=== PATIENT | female | born 1970 | race Caucasian/White ===

== ENCOUNTER 2016-03-15 10:34 | Inpatient (IN) | payer OTHER ==
[2016-03-15] MEDS ORDERED: HYDROmorphone 1 MG/ML 1 ML SYRINGE IVP STA (10:58)
--- NOTE | 2016-03-15 11:28 | ED ---
Back Pain HPI - General Chief Complaint: Back Pain/Injury Stated Complaint: back pain Source: patient Limitations: no limitations - History of Present Illness Initial Comments: This 45-year-old white female presents with the complaint of low back pain. She states that it is primarily in her right buttock region and radiates down her right leg. The pain is worse into her calf. She has numbness going down her right leg as well. She has had her symptoms are probably 6 weeks but they were much worse over the past day. She states that she is unable to put any weight on her right leg at this point. She is unable to ambulate. She has thus far tried some steroids, Neurontin, Motrin 600 mg, and [place] without any relief. She denies any fever or chills. She denies any bowel or bladder abnormalities. She has had some intermittent back pain issues for years. She is scheduled for an MRI scan of her lower back on the 16th of this month. No other complaints or modifying factors. - Related Data Home Medications Medication Instructions Recorded Confirmed Gabapentin [Neurontin] 100 mg PO BID 03/15/16 03/15/16 Ibuprofen [Motrin] 600 mg PO Q6HR PRN 03/15/16 03/15/16 PARoxetine HCL [Paxil] 20 mg PO HS 03/15/16 03/15/16 Allergies Allergy/AdvReac Type Severity Reaction Status Date / Time tetanus and diphtheria Allergy Unknown Verified 03/15/16 11:02 toxoids Childhood Sulfa (Sulfonamide AdvReac Rapid Verified 03/15/16 11:02 Antibiotics) Heart Rate Review of Systems ROS Statement: Those systems with pertinent positive or pertinent negative responses have been documented in the HPI. ROS Other: All systems not noted in ROS Statement are negative. Past Medical History Additional Past Medical History / Comment(s): back pain History of Any Multi-Drug Resistant Organisms: None Reported Past Surgical History: Tubal Ligation, Uterine Ablation Past Psychological History: Depression Smoking Status: Never smoker Past Alcohol Use History: None Reported Past Drug Use History: None Reported General Exam - General Exam Comments Initial Comments: GENERAL: The patient is well nourished and well hydrated. VITAL SIGNS: Heart rate, blood pressure, respiratory rate reviewed as recorded in nurse's notes. EYES: Pupils are round and reactive. Extraocular movements are intact. No conjunctival / lid redness or swelling. ENT: No external evidence of injury, swelling, or ecchymosis. Airway is patent. Throat is clear. NECK: Nontender. No swelling or evidence of injury. No subcutaneous emphysema. Trachea is midline. No thyroid mass. HEART: Regular rate and rhythm. Good peripheral pulses. LUNGS/CHEST: Breath sounds clear and equal bilaterally. No rales, rhonchi, or wheezes. No ecchymosis, subcutaneous emphysema, or tenderness. ABDOMEN: Abdomen soft without tenderness. No palpable masses or organomegaly. No peritoneal signs. No abdominal wall swelling or ecchymosis. EXTREMITIES: There is tenderness noted to the right buttock and slightly in the right leg. There is minimal tenderness in the right lower back. This is in the paraspinal musculature. Strength is intact to lower extremities. Pedal pulses are present bilaterally. NEUROLOGIC: Sensation is grossly intact. Cranial nerve exam reveals face is symmetrical, tongue is midline, speech is clear. SKIN: No abrasions or ecchymosis is noted. No induration or masses noted. PSYCHIATRIC: Alert and oriented. Appropriate behavior and judgment. Limitations: no limitations Course Vital Signs 03/15/16 03/15/16 03/15/16 10:37 12:50 15:31 Temperature 98.6 F 98.3 F 98.9 F Pulse Rate 70 61 72 Respiratory 18 16 16 Rate Blood Pressure 115/74 129/78 120/74 O2 Sat by Pulse 95 100 97 Oximetry Medical Decision Making - Medical Decision Making The patient was seen and examined. She received Dilaudid 1 mg IM. She feels improved with the pain medication. She is still unable to ambulate. An MRI scan was done of the lumbar spine and this does show a herniated disc on the right side at L5-S1. It is felt as though her symptoms are fairly severe to the point where she cannot ambulate. Is felt as though she benefit from admission to the hospital for further treatment. Case is discussed with internal medicine and they are agreeable to admission. She will be admitted to the medical/surgical floor with spinal surgery to consult. Disposition Clinical Impression: Intractable low back pain, Herniated lumbar intervertebral disc, Unable to walk Disposition: ADMITTED IP TO THIS [facility] Condition: Fair Time of Disposition: 16:04 Decision Date: 03/15/16 Decision Time: 16:04
--- NOTE | 2016-03-15 15:00 | MR ---
EXAMINATION TYPE: MR lumbar spine wo con DATE OF EXAM: 03/15/2016 2:39 PM COMPARISON: Plain film February HISTORY: Right low back pain with radiculopathy TECHNIQUE: Multiplanar, multisequence images of the lumbar spine were acquired. There is loss of disc signal, some loss of disc height L4-5, L5-S1, there is multilevel spondylosis. Endplate discogenic marrow signal changes greatest at L5-S1. Increased signal within the L2 vertebral bodies likely due to hemangioma which is larger than one in the L1 vertebral body. Lumbar vertebral bodies show preserved height and alignment. Minimal retrolisthesis grade 1 L5-S1. The conus is at L1 shows an unremarkable appearance. L1-L2: Normal disc appearance without desiccation. No herniation, protrusion or disc bulging. No ca nal stenosis is present. Foramina are patent bilaterally. L2-L3: Normal disc appearance without desiccation. No herniation, protrusion or disc bulging. No ca nal stenosis is present. Foramina are patent bilaterally. L3-L4: Normal disc appearance without desiccation. No herniation, protrusion or disc bulging. No ca nal stenosis is present. Foramina are patent bilaterally. L4-L5: Broad-based posterior disc bulge causes minimal anterior mass effect on the thecal sac. L5-S1: There is a right posterior and paracentral disc herniation contacting the proximal S1 nerve ro ots right greater than left, causing some mass effect on the distal thecal sac. Circumferential exten madeline of endplate disc complex encroaches mildly on the neural foramina. Lumbar segments are intact. No paraspinal masses are identified. IMPRESSION: Disc herniation L5-S1, correlate for S1 radiculopathy.
[2016-03-15] MEDS ORDERED: KETOROLAC 30 MG/ML 1 ML VIAL IVP STA (16:05)
[2016-03-15] MEDS ORDERED: methylPREDNISolone SOD SUCCI 125 MG/2 ML VIAL IV STA (16:05)
[2016-03-15] MEDS ORDERED: ONDANSETRON 4 MG/2 ML VIAL IVP PRN (16:07)
[2016-03-15] MEDS ORDERED: NALOXONE 0.4 MG/ML 1 ML VIAL IV PRN (16:07)
[2016-03-15 17:01] LABS: Basophils % (A) 0 %; CH 31.7; CHCM 34.2; Eosinophils # (A) 0.2 k/uL (0-0.7); Eosinophils % (A) 3 %; HCT 40.9 % (34.0-46.0); HDW 2.61; HGB 13.6 gm/dL (11.4-16.0); Luc % (Auto) 2; Lymphocytes % (A) 33 %; MCH 30.9 pg (25.0-35.0); MCHC 33.3 g/dL (31.0-37.0); MCV 92.9 fL (80.0-100.0); Mean Platelet Volume 8.5; Monocytes # (A) 0.4 k/uL (0-1.0); Monocytes % (A) 6 %; Neutrophils # (A) 3.3 k/uL (1.3-7.7); Neutrophils % (A) 55 %; RBC 4.41 m/uL (3.80-5.40); RDW 12.9 % (11.5-15.5); WBC 5.9 k/uL (3.8-10.6); WBC (Perox) 6.27
[2016-03-15 17:09] LABS: Partial Thromboplastin Time 22.6 sec (22.0-30.0); Prothrombin Time 10.5 sec (9.0-12.0)
[2016-03-15 17:16] LABS: Anion Gap 10 mmol/L; Blood Urea Nitrogen 16 mg/dL (7-17); Calcium 9.3 mg/dL (8.4-10.2); Carbon Dioxide 25 mmol/L (22-30); Chloride 107 mmol/L (98-107); Glucose 92 mg/dL (74-99); Non-African American GFR(MDRD) >60 (>60 ml/min/1.73 sqM); Potassium 4.3 mmol/L (3.5-5.1); Sodium 142 mmol/L (137-145)
[2016-03-15] MEDS ORDERED: methylPREDNISolone SOD SUCCI 125 MG/2 ML VIAL IV SCH (18:00)
[2016-03-15] MEDS: HYDROmorphone 1 MG/ML 1 ML SYRINGE IV PRN ×2 (18:11→23:35)
--- NOTE | 2016-03-15 18:50 | HP ---
DATE OF ADMISSION: 03/15/2016 The patient is a 45 -year-old female came in with low back pain, sharp 10/, increases, has been going up ( ) and uncontrollable pain, radiating to the right buttock area. Patient is having tingling, numbness in the right leg, weakness in the leg is unknown. Unsure whether patient actually has picked up the leg and patient underwent an MRI which is showing L4, L5 disc herniation. The reading is not ( ) actually mentioned about involvement of any nerve involvement, although the patient does have radicular pain. The patient denied any ( ). The patient denied any fever, chills, nausea, vomiting, and abdominal pain. Patient's pain is ( ). The patient is definitely morbidly obese. Patient reflexes are definitely within normal limits. REVIEW OF SYSTEMS: CONSTITUTIONAL: No fever, no malaise, no fatigue. HEENT: No recent visual problems or hearing problems. Denied any sore throat. CARDIOVASCULAR: No chest pain, orthopnea, PND, no palpitations, no syncope. PULMONARY: No shortness of breath, no cough, no hemoptysis. GASTROINTESTINAL: No diarrhea, no nausea, no vomiting, no abdominal pain. Normoactive bowel sounds. NEUROLOGICAL: No headaches, no weakness, no numbness. HEMATOLOGICAL: Denies any bleeding or petechiae. GENITOURINARY: Denies any burning micturition, frequency, or urgency. MUSCULOSKELETAL/RHEUMATOLOGICAL: As described in history of present illness. ENDOCRINE: Denies any polyuria or polydipsia. The rest of the 14 point review of systems is negative. Home medications include: 1. Gabapentin. 2. Ibuprofen. 3. Paroxetine. ALLERGIES: TETANUS TOXOID, SULFA DRUGS AND ANTIBIOTICS. PAST MEDICAL HISTORY: Significant for chronic back pain, tubal ligation, ( ) depression. SOCIAL HISTORY: Denied any smoking or ( ). FAMILY HISTORY: Denied any family history of hypertension or diabetes mellitus in the family. PHYSICAL EXAMINATION: Temperature 98.6, pulse of 70, respiratory rate of 16, blood pressure is 115/74, saturating at 95% on ( ). GENERAL: The patient is alert and oriented x3, not in any acute distress. Well developed, well nourished. HEENT: Pupils are round and equally reacting to light. EOMI. No scleral icterus. No conjunctival pallor. Normocephalic, atraumatic. No pharyngeal erythema. No thyromegaly. CARDIOVASCULAR: S1 and S2 present. No murmurs, rubs, or gallops. PULMONARY: Chest is clear to auscultation, no wheezing or crackles. ABDOMEN: Soft, nontender, nondistended, normoactive bowel sounds. No palpable organomegaly. MUSCULOSKELETAL: Patient straight leg raising test is positive in about 20 degrees on the left side. Does not have any tenderness or paraspinal ( ) was appreciated. ( ). No joint swelling or deformity. EXTREMITIES: No cyanosis, clubbing, or pedal edema. NEUROLOGICAL: Gross neurological examination did not reveal any focal deficits. SKIN: No rashes. Imaging as mentioned above. I do not have any lab tests available. IMPRESSION: 1. Severe uncontrollable low back pain. The patient is admitted for pain management. Patient is on Ketorolac, Dilaudid and Solu-Medrol. Secondary to disc herniation. Spinal surgeon Dr. Case was consulted. 2. Neuropathy and radiating radicular pain radiating into the left buttock area secondary to disc herniation continue with Gabapentin. 3. Morbid obesity, counselling was provided. 4. Depression for which I will go ahead and continue her home medications. MTDD
[2016-03-15] MEDS: GABAPENTIN 100 MG CAP PO SCH (20:30)
[2016-03-15] MEDS: PARoxetine 20 MG TAB PO SCH (20:30)
[2016-03-15 20:48] LABS: Glucose,Whole Blood 114 mg/dL (75-99)
[2016-03-15] MEDS: KETOROLAC 30 MG/ML 1 ML VIAL IVP PRN (21:54)
[2016-03-15] MEDS: methylPREDNISolone SOD SUCCI 40 MG/ML 1 ML VIAL IV SCH (23:35)
[2016-03-16 07:01] LABS: Glucose,Whole Blood 126 mg/dL (75-99)
[2016-03-16 07:30] LABS: CH 31.6; CHCM 33.8; HCT 41.1 % (34.0-46.0); HDW 2.64; HGB 13.6 gm/dL (11.4-16.0); MCH 31.1 pg (25.0-35.0); MCHC 33.1 g/dL (31.0-37.0); MCV 93.8 fL (80.0-100.0); Mean Platelet Volume 9.7; RBC 4.38 m/uL (3.80-5.40); RDW 12.7 % (11.5-15.5); WBC 8.4 k/uL (3.8-10.6)
[2016-03-16 07:49] LABS: ALT 27 U/L (9-52); AST 17 U/L (14-36); Alkaline Phosphatase 70 U/L (38-126); Anion Gap 11 mmol/L; Blood Urea Nitrogen 21 mg/dL (7-17); Calcium 9.8 mg/dL (8.4-10.2); Carbon Dioxide 25 mmol/L (22-30); Chloride 105 mmol/L (98-107); Glucose 134 mg/dL (74-99); Non-African American GFR(MDRD) >60 (>60 ml/min/1.73 sqM); Potassium 4.6 mmol/L (3.5-5.1); Sodium 141 mmol/L (137-145); Total Bilirubin 0.4 mg/dL (0.2-1.3); Total Protein 7.1 g/dL (6.3-8.2)
[2016-03-16] MEDS: ENOXAPARIN 40 MG/0.4 ML SYRINGE SQ SCH (08:16)
[2016-03-16] MEDS: methylPREDNISolone SOD SUCCI 40 MG/ML 1 ML VIAL IV SCH ×2 (08:16→17:17)
[2016-03-16] MEDS: GABAPENTIN 100 MG CAP PO SCH ×2 (08:16→21:39)
[2016-03-16] MEDS: HYDROmorphone 1 MG/ML 1 ML SYRINGE IV PRN ×2 (08:31→17:29)
[2016-03-16] MEDS ORDERED: PANTOPRAZOLE 40 MG/10 ML VIAL IV SCH (09:00)
--- NOTE | 2016-03-16 10:01 | P.CNOR ---
History of Present Illness - [facility] Consult date: 03/16/16 Consult reason: low back pain, other (Right lower extremity radiculopathy and pain) History of present illness: Patient's a pleasant 45-year-old female who has been having severe low back and right lower extremity symptoms over the past 6 weeks. She says she has back pain on and off for the past several years but over the past 6 weeks has been having worsening of her symptoms and pain down toward her right leg. She started initially going to her chiropractor and had some slight relief but was having continued symptoms and presented to her primary care physician who started her on a short course of oral steroids around Christmastime. She did not have any significant benefit and was actually having some worsening of her symptoms and over the past few days it had severe worsening of her symptoms at her right buttock down the back of her leg and right calf to the point where she was unable to walk. She has had to crawl around her house to try to get to the bathroom and could not get up and eventually called EMS was brought to the hospital where she was admitted for observation. She was found to have an herniated disc at L5-S1 which correlated well with her symptoms. She denies any specific weakness. She denies any problems in her left lower extremity. She denies any nausea vomiting or night sweats. She did have some workup for her right leg to rule out venous thrombosis which was negative per ultrasound. Review of Systems Denies fevers chills night sweats. Denies chest pain shortness breath. Denies recent illness. Denies problems in bowel bladder function denies any weakness in lower extremities. Denies any specific injury or trauma. Past Medical History Past Medical History: Musculoskeletal Disorder (History of low back pain) Additional Past Medical History / Comment(s): back pain-(HERNIATED DISC LUMBAR DISC PER MRI-16) History of Any Multi-Drug Resistant Organisms: None Reported Past Surgical History: Tubal Ligation, Uterine Ablation Additional Past Surgical History / Comment(s): WISDOM TEETH REMOVED Past Anesthesia/Blood Transfusion Reactions: Motion Sickness Additional Past Anesthesia/Blood Transfusion Reaction / Comm: MOTION SICKNESS IF RIDING IN BACK SEAT OF CAR Past Psychological History: Depression Additional Psychological History / Comment(s): PT HAS HX OF DEPRESSION, CURRNETLY FEELS WELL MAINTAINE DBY HER MEDS.PT LIVES AT HOME WITH SPOUSE AND 3 OF HER 4 CHILDREN, NORMALLY IS INDEPENDANT. HAS BEEN HAVING BACK PAIN AND THIS AM UNABLE TO AMBULATE/PAIN >10 WHEN UP. AT REST C/O PAIN 6. Smoking Status: Never smoker Past Alcohol Use History: None Reported Past Drug Use History: None Reported - Past Family History Father Additional Family Medical History / Comment(s): PARKINSONS Mother Additional Family Medical History / Comment(s): MOM IS A SMOKER-UNSURE OF ANY MED PROBLEMS Medications and Allergies Home Medications Medication Instructions Recorded Confirmed Type Gabapentin [Neurontin] 100 mg PO BID 03/15/16 03/15/16 History Ibuprofen [Motrin] 600 mg PO Q6HR PRN 03/15/16 03/15/16 History PARoxetine HCL [Paxil] 20 mg PO HS 03/15/16 03/15/16 History Allergies Allergy/AdvReac Type Severity Reaction Status Date / Time tetanus and diphtheria Allergy Unknown Verified 03/15/16 11:02 toxoids Childhood Sulfa (Sulfonamide AdvReac Rapid Verified 03/15/16 11:02 Antibiotics) Heart Rate Physical Examination Osteopathic Statement: *. No significant issues noted on an osteopathic structural exam other than those noted in the History and Physical/Consult. - L Spine: dermatomal strength & reflexes right Strength: hip flexion: 5/5 (At her low back is clear. There is no erythema or ulcerations or abrasions. She is nontender to palpation but does have some paravertebral spasm. Her lower extremities have sustained dorsal flexion plantar flexion and extensor hallucis longus with 5 out of 5 strength. She is positively straight leg raise and positive Lasegue's sign. Capillary refill less 2 seconds vascular appears to be intact) Results - Labs Labs: Abnormal Lab Results - Last 24 Hours (Table) 03/15/16 03/16/16 03/16/16 Range/Units 20:35 06:52 07:08 BUN 21 H (7-17) mg/dL Glucose 134 H (74-99) mg/dL POC Glucose (mg/dL) 114 H 126 H (75-99) mg/dL H & H 03/15/16 03/16/16 Range/Units 16:45 07:08 Hgb 13.6 13.6 (11.4-16.0) gm/dL Hct 40.9 41.1 (34.0-46.0) % Coagulation 03/15/16 Range/Units 16:45 INR 1.0 (<1.1) Result Diagrams: 03/16/16 07:08 03/16/16 07:08 - Diagnostic results Lumbar AP/lateral x-ray: report reviewed, image reviewed Lumbar MRI with/without contrast: report reviewed, image reviewed (X-rays and MRI of lumbar spine done in the past 2 days have been reviewed. She has some disc degeneration L5-S1. There is a right paracentral disc herniation at L5-S1 causing significant stenosis at the right neural foramen. There is no evidence of masses or pathologic process.) Assessment and Plan Plan: Herniated nucleus pulposis L5-S1 Right lower extremity radiculopathy The patient has a new disc herniation at L5-S1 causing her right lower extremity radicular symptoms. She is not having any specific weakness or neurologic deficit but is having severe pain where she is unable to cannulate or mobilize. She has been started on IV steroids and is on pain medicine which I think is appropriate. We have consult interventional pain management for the possibility of epidural steroid injections which may give her significant benefit and allow her to be functional at home. If she is comfortable be at home it is okay to continue workup and management as an outpatient. If she is unable to manage without IV medications she may need to stay in the hospital a little longer. She is not having acute weakness and I would like to pursue continued conservative treatment for now but she is a good candidate for surgical intervention for laminectomy and discectomy at L5-S1 if her symptoms persist. I discussed this with her and her mother at length at bedside. I answered their questions best my ability and plan she can understand and they are agreeable. Time with Patient: Greater than 30
--- NOTE | 2016-03-16 11:00 | PN ---
Patient is a 45-year-old admitted with herniated disc and patient's pain is better controlled with IV pain medications and patient was evaluated by Dr. Case. Patient does not have any weakness but does have radicular symptoms. As per Dr. Case, patient is not a candidate for surgery and pain management was consulted for a steroid injection into the lower back. REVIEW OF SYSTEMS: CARDIOVASCULAR: No chest pain, no orthopnea, no PND, no palpitations. PULMONARY: Denied any shortness of breath. No cough or hemoptysis. GASTROINTESTINAL: No diarrhea, nausea or vomiting. No abdominal pain. Normoactive bowel sounds. NEUROLOGIC: No headaches, no weakness, no numbness. MUSCULOSKELETAL: Significantly improved pain symptoms with IV pain medications. Medications were reviewed. PHYSICAL EXAMINATION: Temperature 98.2, pulse of 78, respiratory rate of 18, blood pressure 123/63, saturating at 94% on room air. GENERAL: Morbidly obese, alert and oriented x3. MUSCULOSKELETAL: Defer to Orthopedic Surgery evaluation. HEENT: Pupils are round and equally reacting to light. EOMI. No scleral icterus. No conjunctival pallor. Normocephalic, atraumatic. No pharyngeal erythema. No thyromegaly. CARDIOVASCULAR: S1 and S2 present. No murmurs, rubs, or gallops. PULMONARY: Chest is clear to auscultation, no wheezing or crackles. ABDOMEN: Soft, nontender, nondistended, normoactive bowel sounds. No palpable organomegaly. EXTREMITIES: No cyanosis, clubbing, or pedal edema. NEUROLOGICAL: Gross neurological examination did not reveal any focal deficits. SKIN: No rashes. LABORATORY DATA: No significant abnormality was appreciated. ASSESSMENT AND PLAN: 1. Uncontrollable low back pain with radicular symptoms secondary to herniated disc at L5-S1. 2. Neuropathy with radiating pain to the left buttock area, which is from the herniated disc. 3. Morbid obesity. 4. Depression. PLAN: Pain management consult for a steroid injection. Possibility of discharge today or tomorrow depending on the pain management evaluation and pain control. Patient is presently on the IV pain medications. Patient is also receiving systemic steroids to decrease inflammation of the back.
[2016-03-16] MEDS: KETOROLAC 30 MG/ML 1 ML VIAL IVP PRN (11:11)
[2016-03-16 11:32] LABS: Glucose,Whole Blood 133 mg/dL (75-99)
--- NOTE | 2016-03-16 12:16 | P.CON ---
Consult Note - . Consult date: 03/16/16 Assessment/Plan:: Patient seen and examined, past medical, surgical, family, social history, allergies reviewed. This is a 45-year-old female who presents to [facility] with complaints of low back pain and numbness shooting and tingling in her right lower extremity from her buttock all the way down to her feet. Physical exam demonstrates an overweight female with normal vital signs with low back pain and positive straight leg raise on the right side at 25 degrees, negative on the left side. Patient was seen by spine service and anesthesia pain service is consulted for lumbar epidural steroid injection. MRI of lumbar spine dated 03/15/2016 demonstrates at the L5-S1 level a right posterior paracentral disc herniation contacting the proximal S1 nerve root right greater than left with some mass effect on the distal thecal sac. There is circumferential extension of the endplate disc complex encroaching mildly on the neural foramina. I agree with Dr. Case that this patient would benefit from lumbar epidural steroid injection, and patient wishes to have it done. Will schedule to be done as inpatient procedure tomorrow morning. Will order NPO after midnight, please hold all blood thinners in AM including subcutaneous heparin.
[2016-03-16 17:25] LABS: Glucose,Whole Blood 125 mg/dL (75-99)
[2016-03-16 20:15] LABS: Glucose,Whole Blood 119 mg/dL (75-99)
[2016-03-16] MEDS: PARoxetine 20 MG TAB PO SCH (21:39)
[2016-03-17] MEDS: methylPREDNISolone SOD SUCCI 40 MG/ML 1 ML VIAL IV SCH ×2 (00:27→08:55)
[2016-03-17] MEDS ORDERED: PANTOPRAZOLE 40 MG TABLET PO SCH (07:30)
[2016-03-17 07:45] LABS: Glucose,Whole Blood 129 mg/dL (75-99)
--- NOTE | 2016-03-17 07:57 | P.PN ---
Progress Note - Text Patient is seen and examined today at bedside. She still having pain at her lower extremity when she tries to ambulate and stand for any length of time. Pain is being controlled with medication. She denies any specific weakness area denies any problems about bladder function Physical Exam Afebrile with stable vital signs Abdomen is soft nontender. Chest has good excursion deep and space expiration Extremities have not had neurologic change from yesterday. She has 5 out of 5 strength the dorsal flexion plantarflexion and EHL bilaterally Calves and thighs were soft nontender without evidence of DVT. Assessment/Plan We will continue to increase the patient's mobilization with therapy. We will continue pain control with oral or IV medications. She has been seen by interventional pain management who are planning a epidural steroid injection today and I think that is appropriate. Hopefully she'll have some relief with the injection and would be able to be discharged to home for continued outpatient management. If she is comfortable after her injection it is okay from a spine standpoint for her to be discharged home to follow-up in approximately 1 week for recheck evaluation. I explained this to her answered her questions best my ability and she is agreeable.
[2016-03-17] MEDS ORDERED: LACTATED RINGERS 1,000 ML IV SCH (10:10)
[2016-03-17 10:19] VITALS: RESP 16
[2016-03-17] MEDS ORDERED: IOHEXOL 180 MG/ML 1 ML ML ONE (10:54)
[2016-03-17] MEDS ORDERED: fentaNYL (PF) 50 MCG/ML 2 ML AMP ONE (10:54)
[2016-03-17] MEDS ORDERED: TRIAMCINOLONE ACETONIDE 40 MG/ML 1 ML VIAL ONE (10:54)
[2016-03-17] MEDS ORDERED: MIDAZOLAM 2 MG/2 ML VIAL ONE (10:54)
--- NOTE | 2016-03-17 11:20 | P.PCN ---
Date of Procedure: 03/17/16 Procedure(s) Performed: PREOPERATIVE DIAGNOSIS: 1- Lumbar herniated Disc Diseases 2-Lumbar Radiculopathy. POSTOPERATIVE DIAGNOSIS: Same as preoperative diagnosis PROCEDURE 1. Lumbar epidural steroid injection under fluoroscopic guidance at the L5-S1 level. 2. Lumbar epidurogram. ANESTHESIA: Local with 1% lidocaine 3 ml and IV sedation with Versed 2 mg , and fentanyle 100 Mcg EBL: Minimal PROCEDURE INDICATION: The patient with low back pain and radiculitis symptoms unresponsive to conservative treatment. Fluoroscopy was used to optimize visualization of the needle placement and to maximize safety. PROCEDURE DESCRIPTION / TECHNIQUE: The patient was seen and identified in the preoperative area. Risks, benefits , complications including but not limited to infections ,bleeding ,allergic reaction to the medications ,nerve damage and not complete pain releife , and alternatives were discussed with the patient. The patient agreed to proceed with the procedure and signed the consent. IV was started, and vital signs were stable. Patient was taken to the OR and time out was completed. The patient was placed in the prone position on procedure table and a pillow was placed under the abdomen to reduce lumbar lordosis. The lumbosacral area was prepped and draped in the usual sterile fashion.ere closely monitored during the procedure. Conscious sedation was used during the procedure to decrease patients anxiety. Vital signs was monitered during the entire procedure. Using anterior-posterior fluoroscopy, the L5-S1 interlaminar space was identified and the skin over this site was marked and then infiltrated with 1% lidocaine subcutaneously. Subsequently, a 20-gauge Tuohy epidural needle was inserted and advanced toward the epidural space using the Loss of resistance technique and guided by AP and lateral fluoroscopy. The correct needle position in the epidural space was verified with the injection of 2 mL of the water soluble contrast dye Omnipaque 180 contrast and observing an excellent epidurogram with the epidural spread of the dye, after negative aspiration for blood and CSF and in the absence of paresthesias. Again after negative aspiration, a 6 ml mixture containing 80 mg of Kenalog and 2 ml of preservative free Normal Saline, and 2 ml of preservative free lidocaine 1% solution was injected and a washout of epidurogram was seen. Needle was withdrawn intact, skin was cleansed, and bandages were applied. COMPLICATIONS: None DISPOSITION / PLANS: The patient was placed in a supine position and transferred to the recovery area in a stable condition for observation. There was no evidence of lower extremity motor or sensory deficit after the procedure. Patient was discharged from the recovery room after meeting discharge criteria. Home discharge instructions were given to the patient by the staff. The patient was reexamined prior to discharge. The patient will schedule a follow up in the clinic in 2-4 weeks. And also recommend to discontinue the IV Steroid
[2016-03-17 12:24] VITALS: BP 136/74; PULSE 56; TEMP 97.9
--- NOTE | 2016-03-17 12:29 | FL ---
EXAMINATION TYPE: FL guided pain mgmt statistic DATE OF EXAM: 03/17/2016 11:24 AM HISTORY: back pain Fluoroscopy support supplied to the referring clinician. See dictated report from anesthesia, 14 sec onds fluoroscopy supplied, intraoperative c arm image documents the procedure.
[2016-03-17] MEDS: ENOXAPARIN 40 MG/0.4 ML SYRINGE SQ SCH (12:52)
[2016-03-17] MEDS: GABAPENTIN 100 MG CAP PO SCH (12:53)
--- NOTE | 2016-03-18 09:57 | DS ---
DATE OF ADMISSION: 03/16/2016 DATE OF DISCHARGE: 03/17/2016 The patient is a 45-year-old lady admitted with herniated disc at L5-S1 and patient underwent steroid injection after which patient felt clinically better and patient is being discharged on pain medications. Patient is otherwise clinically doing well. Patient was seen and examined on the day of discharge. Vital signs stable. PHYSICAL EXAMINATION: GENERAL: The patient is alert and oriented x3, not in any acute distress. Well developed, well nourished. HEENT: Pupils are round and equally reacting to light. EOMI. No scleral icterus. No conjunctival pallor. Normocephalic, atraumatic. No pharyngeal erythema. No thyromegaly. CARDIOVASCULAR: S1 and S2 present. No murmurs, rubs, or gallops. PULMONARY: Chest is clear to auscultation, no wheezing or crackles. ABDOMEN: Soft, nontender, nondistended, normoactive bowel sounds. No palpable organomegaly. MUSCULOSKELETAL: No joint swelling or deformity. EXTREMITIES: No cyanosis, clubbing, or pedal edema. NEUROLOGICAL: Gross neurological examination did not reveal any focal deficits. SKIN: No rashes. FINAL DIAGNOSIS(ES): 1. Uncontrolled low back pain with radicular symptoms at L5-S1. Patient can return to work on Monday. 2. Neuropathy with radiating pain secondary to herniated disc. 3. Morbid obesity. 4. Depression. Dietary counseling was provided. Patient will be discharged today in stable medical condition to home. Activity as tolerated. Cardiac diet. Patient is being discharged on: 1. Edotolac. 2. Famotidine. 3. Hydrocodone acetaminophen. Patient will follow with Dr. Rambo Case in one week, Dr. Hagan in 3 weeks, Dr. Antonia Bingham in 3 days.
== END 2016-03-17 15:40 | disposition home or self-care (01) | DRG 552 ==
LOC: EC 10:34 → 5MS5E 16:07 → OBSVTOIN 03-16 15:42
PROVIDERS: ADMIT Internal Medicine; ATTEND Internal Medicine
PROC: 3E0S33Z Introduction of Anti-inflammatory into Epidural Space, Percutaneous Approach (ICD-10-PCS; principal; 2016-03-17 11:00)
DX: M51.17 Intervertebral disc disorders with radiculopathy, lumbosacral region (principal); Z68.42 Body mass index [BMI] 45.0-49.9, adult; E66.01 Morbid (severe) obesity due to excess calories; R20.2 Paresthesia of skin; M62.830 Muscle spasm of back; R20.9 Unspecified disturbances of skin sensation; R20.0 Anesthesia of skin; G62.9 Polyneuropathy, unspecified; R26.2 Difficulty in walking, not elsewhere classified; G89.29 Other chronic pain; F32.9 Major depressive disorder, single episode, unspecified; Z98.51 Tubal ligation status; Z88.2 Allergy status to sulfonamides; Z88.7 Allergy status to serum and vaccine; Z82.0 Family history of epilepsy and other diseases of the nervous system; Z79.1 Long term (current) use of non-steroidal anti-inflammatories (NSAID); Z79.899 Other long term (current) drug therapy; Z71.3 Dietary counseling and surveillance
CPT/HCPCS: 62323; 72148; 80048; 80053; 85025; 85027; 85610; 85730; 93005; 96372; 96374; 96375; 96376; 99285

== ENCOUNTER → 2016-03-31 | Outpatient (CLI) | payer OTHER ==
[2016-03-31 11:57] LABS: Basophils % (A) 1 %; CH 31.5; Eosinophils # (A) 0.1 k/uL (0-0.7); Eosinophils % (A) 1 %; HCT 42.9 % (34.0-46.0); HGB 13.9 gm/dL (11.4-16.0); Luc # (Auto) 0.07; Luc % (Auto) 1; Lymphocytes # (A) 1.9 k/uL (1.0-4.8); Lymphocytes % (A) 30 %; MCH 31.1 pg (25.0-35.0); MCHC 32.5 g/dL (31.0-37.0); MCV 95.8 fL (80.0-100.0); Mean Platelet Volume 9.2; Monocytes # (A) 0.5 k/uL (0-1.0); Monocytes % (A) 7 %; Neutrophils # (A) 3.9 k/uL (1.3-7.7); Neutrophils % (A) 60 %; RBC 4.48 m/uL (3.80-5.40); RDW 13.2 % (11.5-15.5); WBC 6.5 k/uL (3.8-10.6); WBC (Perox) 6.49
[2016-03-31 12:03] LABS: Blood Urea Nitrogen 19 mg/dL (7-17); Non-African American GFR(MDRD) 59 (>60 ml/min/1.73 sqM)
--- NOTE | 2016-03-31 12:24 | CT ---
EXAMINATION TYPE: CT abdomen pelvis w con DATE OF EXAM: 03/31/2016 12:12 PM COMPARISON: NONE INDICATION: rectal bleeding DLP: 1871.6 mGycm, Automated exposure control for dose reduction was used. CONTRAST: 100 ml mL of Omnipaque 300. Study performed with Oral Contrast TECHNIQUE: Axial images were obtained from above the diaphragm to the pubic rami in the axial plane a t 5 mm thick sections. Reconstructed images are reviewed on the computer in the coronal plane. FINDINGS: Limited CT sections are obtained the lung bases. 0.5 cm calcification is within the lingula compatib le with a calcified granuloma.. CT ABDOMEN: Liver: Normal Spleen: Normal Pancreas: Normal Adrenal glands: The adrenal glands are normal. Gallbladder: Normal Kidneys: No masses are evident. No hydronephrosis is present. No cysts are present. Delayed images were obtained through the kidneys, which remain unremarkable. Aorta: Normal Inferior vena cava: Normal. CT PELVIS: Loops of bowel within the abdomen and pelvis are normal. There are loops of bowel which are incom pletely distended or lack oral contrast limiting their evaluation. Sigmoid diverticulosis is present. No suspicious adjacent inflammatory changes are evident. Some wall thickening within the first porti on of the duodenum is not excluded. This is somewhat more open on the delayed images. Appendix: Normal as visualized. Urinary bladder: Normal. Genitourinary structures: There is a 2.6 cm cyst on the left ovary. The uterus is unremarkable. Right adnexal region has a 1.7 cm cyst. No free fluid is within the pelvis. Osseous structures: No suspicious lytic or sclerotic lesions. IMPRESSIONS: 1. Bilateral ovarian cyst. This could be followed with ultrasound. 2. Sigmoid diverticulosis without acute diverticulitis.
== END | disposition home or self-care (01) ==
LOC: RADCTMAIN 11:29
PROVIDERS: ATTEND Family Medicine
DX: K57.30 Diverticulosis of large intestine without perforation or abscess without bleeding (principal); N83.202 Unspecified ovarian cyst, left side; N83.201 Unspecified ovarian cyst, right side
CPT/HCPCS: 82565; 84520; 85025; 74177; 36415; Q9967

== ENCOUNTER → 2016-04-13 | Outpatient (CLI) | payer OTHER ==
[2016-04-13 13:10] LABS: EKG EKG PERFORMED
--- NOTE | 2016-04-13 13:25 | XR ---
EXAMINATION TYPE: XR chest 2V DATE OF EXAM: 04/13/2016 1:15 PM COMPARISON: NONE TECHNIQUE: PA and lateral views submitted. HISTORY: Presurgical FINDINGS: The lungs are clear and there is no pneumothorax, pleural effusion, or focal pneumonia. IMPRESSION: 1. No acute process.
[2016-04-13 13:30] LABS: Basophils % (A) 1 %; CH 31.7; CHCM 33.3; Eosinophils # (A) 0.1 k/uL (0-0.7); Eosinophils % (A) 3 %; HCT 42.7 % (34.0-46.0); HDW 2.53; HGB 13.7 gm/dL (11.4-16.0); Luc # (Auto) 0.09; Luc % (Auto) 2; Lymphocytes # (A) 1.3 k/uL (1.0-4.8); Lymphocytes % (A) 28 %; MCH 30.7 pg (25.0-35.0); MCHC 32.1 g/dL (31.0-37.0); MCV 95.7 fL (80.0-100.0); Monocytes # (A) 0.4 k/uL (0-1.0); Monocytes % (A) 8 %; Neutrophils # (A) 2.6 k/uL (1.3-7.7); Neutrophils % (A) 58 %; RBC 4.46 m/uL (3.80-5.40); RDW 13.3 % (11.5-15.5); WBC 4.5 k/uL (3.8-10.6); WBC (Perox) 4.65
[2016-04-13 13:33] LABS: Partial Thromboplastin Time 23.7 sec (22.0-30.0); Prothrombin Time 10.5 sec (9.0-12.0)
[2016-04-13 13:40] LABS: Anion Gap 11 mmol/L; Blood Urea Nitrogen 21 mg/dL (7-17); Calcium 9.3 mg/dL (8.4-10.2); Carbon Dioxide 27 mmol/L (22-30); Chloride 102 mmol/L (98-107); Glucose 88 mg/dL (74-99); Non-African American GFR(MDRD) >60 (>60 ml/min/1.73 sqM); Potassium 4.3 mmol/L (3.5-5.1); Sodium 140 mmol/L (137-145)
== END | disposition home or self-care (01) ==
LOC: LABPAT 12:23
PROVIDERS: ATTEND Orthopaedic Surgery Orthopaedic Surgery of the Spine
DX: Z01.818 Encounter for other preprocedural examination (principal); Z01.812 Encounter for preprocedural laboratory examination; Z01.810 Encounter for preprocedural cardiovascular examination
CPT/HCPCS: 71020; 80048; 85025; 85610; 85730; 87070; 93005

== ENCOUNTER 2016-04-20 11:11 | Observation (INO) | payer OTHER ==
[2016-04-15 14:13] VITALS: BMI 45.1
[~2016-04-20 11:11] MED LIST: BACITRACIN 50,000 UNIT, POLYMYXIN B 500,000 UNIT in SODIUM CHLORIDE 0.9% IRRIGATIO 1,00... IRRIGATION ONE; LACTATED RINGERS 1,000 ML IV SCH; LIDOCAINE 1% 20 ML VIAL (10MG/ML) FOR IV START INTRADERMA PRN; ONDANSETRON 4 MG/2 ML VIAL IVP ONE; SCOPOLAMINE 1.5MG/72HR PATCH TRANSDERM ONE; ceFAZolin 3 GM in SODIUM CHLORIDE 0.9% 100 ML IVPB ONE
[2016-04-20] MEDS ORDERED: fentaNYL (PF) 50 MCG/ML 2 ML AMP ONE (12:34)
[2016-04-20] MEDS ORDERED: PROPOFOL 10 MG/ML 20 ML VIAL IV ONE (12:34)
[2016-04-20] MEDS ORDERED: LIDOCAINE 1% INJ 10MG/ML (20 ML MDV) ONE (12:34)
[2016-04-20] MEDS ORDERED: ROCURONIUM BROMIDE 10 MG/ML 10 ML VIAL IV ONE (12:34)
[2016-04-20] MEDS ORDERED: MIDAZOLAM 2 MG/2 ML VIAL ONE (12:34)
[2016-04-20] MEDS ORDERED: SUCCINYLCHOLINE CHLORIDE 100 MG/5 ML SYR IV ONE (12:34)
[2016-04-20] MEDS ORDERED: NEOSTIGMINE 1 MG/ML 10 ML VIAL ONE (12:34)
[2016-04-20] MEDS ORDERED: GLYCOPYRROLATE 0.2 MG/ML 2 ML VIAL ONE (12:34)
[2016-04-20] MEDS ORDERED: LIDOCAINE 0.5%-EPI 1:200,000 50 ML VIAL SQ ONE ×2 (12:46→13:02)
[2016-04-20] MEDS ORDERED: GELATIN SPONGE,ABSORB (LARGE) 1 EACH SPONGE TOPICAL ONE (12:46)
[2016-04-20] MEDS ORDERED: methylPREDNISolone ACETATE 80 MG/ML 1 ML VIAL INJ ONE (12:46)
[2016-04-20] MEDS ORDERED: THROMBIN (BOVINE) 5,000 UNIT VIAL MISCELLANE ONE (12:47)
[2016-04-20] MEDS ORDERED: LACTATED RINGERS 1,000 ML IV ONE (13:38)
--- NOTE | 2016-04-20 13:39 | FL ---
Fluoroscopy HISTORY: Pain 3 seconds fluoroscopy time supplied to the referring clinician. 1 intraoperative C-arm images docume nt the procedure. See dictated report from orthopedic surgery.
--- NOTE | 2016-04-20 13:40 | XR ---
Limited lumbar spine HISTORY: L5-S1 laminectomy Intraoperative C-arm image documents the procedure
[2016-04-20] MEDS ORDERED: BENZOCAINE/MENTHOL LOZENG 1 EACH LOZENGE MUCOUS MEM PRN (13:50)
[2016-04-20] MEDS ORDERED: DIAZEPAM 5 MG TAB PO PRN (13:50)
[2016-04-20] MEDS ORDERED: HYDROmorphone 1 MG/ML 1 ML SYRINGE IVP PRN (13:50)
--- NOTE | 2016-04-20 13:50 | P.OP ---
Date of Procedure: 04/20/16 Preoperative Diagnosis: Herniated nucleus pulposis L5-S1, right lower extremity radiculopathy, degenerative disc disease L5-S1 Postoperative Diagnosis: Same Anesthesia: GETA Pathology: none sent Condition: stable Disposition: PACU Description of Procedure: BRIEF OPERATIVE NOTE Preoperative Diagnosis: Herniated nucleus pulposis L5-S1, degenerative disc disease L5-S1, lower extremity radiculopathy Postoperative Diagnosis: Same Procedure: Laminectomy and decompression L5-S1 Discectomy for decompression L5-S1 Use of fluoroscopic guidance Surgeon: Dr. Case Pool Manager: Helio aDvid is present throughout the entire the case persistence during positioning, dissection, exposure, visualization, and all crucial elements of the case as well as closure. Anesthesia: General anesthesia Estimated blood loss: Approximately 50 mL Complications: None apparent Components implanted: None Disposition: To recovery room in good stable condition. OPERATIVE INDICATIONS The patient has been having issues in their lower back and lower extremities. She was found have a large herniated nucleus pulposus L5-S1 causing severe stenosis related well with her back and lower extremity symptoms. The patient has been through conservative treatment. She is not having any lasting benefit despite aggressive conservative treatment. She had been through several months of conservative care. We discussed various treatment options including surgery , and the patient wishes to proceed with surgery We discussed the risk, patient' s alternatives and benefits of surgery including but not limited to, risk of bleeding risk of infection, risk of need for further surgery, risk of decreased , loss of motion, loss of function, nerve damage, paralysis, heart attack, blindness and . OPERATIVE SUMMARY After discussing all the risks, patient alternatives and benefits at length, the patient elected to proceed with surgical intervention, signed informed consent, and presented for their procedure. The patient was seen and examined in the preoperative holding area and the surgical site was marked. The patient was given antibiotics and brought to the operating room. The patient was sedated and intubated by anesthesia in standard fashion. The patient was positioned on to the operating room table in a prone position on the appropriate frame which was well-padded and well molded. We were careful to pad any bony prominences and pressure points. We were careful to maintain the patient's cervical spine and good neutral alignment and position throughout. The patient was prepped and draped in a normal standard fashion. An appropriate timeout and keystone protocol performed. We were able to proceed with the surgery. Fluoroscopy was utilized to establish the appropriate level at L5-S1. The local wound area was infiltrated with local anesthetic. An incision was made at the midline longitudinally over the appropriate levels at L5-S1. Dissection was taken down subcutaneously to the level of the fascia which was split midline. Dissection was taken over the lamina. Intraoperative fluoroscopy was taken which showed a marker at the appropriate level of L5-S1. With the appropriate level positively confirmed, we were able to proceed with laminectomy. The wound was copiously irrigated and suctioned dry as had been done periodically throughout the case. I performed a laminectomy with a combination of curettes and a high-speed bur and Kerrison rongeurs. A small medial facetectomy was performed again further access. A partial foraminotomy was also performed. Portions of the ligamentum flavum were taken down to expose the dura and traversing nerve root. I was able to mobilize the traversing nerve root and gain access to the disc space. Note was made of obvious compression from the disc. There is obvious disc herniation with extruded fragment causing severe stenosis. Protecting the soft tissue structures, a small annulotomy was established. I was able to perform discectomy and remove any extruded disc fragments and any loose fragments from within the disc itself. There is some disc desiccation noted. I tried to preserve the disc annulus that appeared stable. There were no further extruded fragments noted. There is no evidence of dural tear or leak. Good hemostasis maintained. The wound was copiously irrigated and suctioned dry. Good decompression and discectomy was noted. We were able to proceed with closure. The fascia was closed for a watertight closure. The subcuticular tissue was closed with absorbable suture. The wound was cleaned and dried and dressed with the appropriate dressing. The drapes were broken down. The patient was gently rolled back onto their hospital bed being careful to maintain their cervical spine and good neutral alignment and position. They were woken up by anesthesia, extubated, and brought to the recovery room in good stable condition. The patient will be admitted to the hospital for observation and for appropriate postoperative care, medical management and monitoring. We will continue to follow them closely about the postoperative course.
[2016-04-20] MEDS ORDERED: KETOROLAC 30 MG/ML 1 ML VIAL IVP PRN (13:51)
[2016-04-20] MEDS ORDERED: IBUPROFEN 600 MG TAB PO PRN (13:51)
[2016-04-20] MEDS ORDERED: HYDROcodone/APAP 5-325MG 1 EACH TAB PO PRN (13:51)
[2016-04-20] MEDS ORDERED: ONDANSETRON 4 MG/2 ML VIAL IVP PRN (13:51)
[2016-04-20] MEDS: HYDROmorphone 1 MG/ML 1 ML SYRINGE IVP PRN ×7 (14:11→22:42)
[2016-04-20] MEDS: SODIUM CHLORIDE 0.9% 1,000 ML IV SCH (18:09)
[2016-04-20] MEDS: ceFAZolin 2 GM in SODIUM CHLORIDE 0.9% 100 ML IVPB SCH (19:58)
[2016-04-21] MEDS: HYDROmorphone 1 MG/ML 1 ML SYRINGE IVP PRN (02:51)
[2016-04-21] MEDS: ceFAZolin 2 GM in SODIUM CHLORIDE 0.9% 100 ML IVPB SCH (03:45)
[2016-04-21 08:01] VITALS: BP 100/61; PULSE 84; TEMP 98.2
[2016-04-21] MEDS: HYDROcodone/APAP 5-325MG 1 EACH TAB PO PRN ×2 (08:16→13:29)
[2016-04-21 08:42] VITALS: RESP 16
--- NOTE | 2016-04-21 09:05 | P.DS ---
Providers Date of admission: 04/20/16 23:04 Expected date of discharge: 04/21/16 Attending physician: Sachin Case Primary care physician: Antonia Bingham - Discharge Diagnosis(es) (1) Herniated nucleus pulposus, L5-S1 Current Visit: Yes Status: Acute (2) Degenerative disc disease at L5-S1 level Current Visit: Yes Status: Acute (3) Radiculopathy with lower extremity symptoms Current Visit: Yes Status: Acute Hospital Course: This is a pleasant 45-year-old female who presented with L5-S1 herniated nucleus pulposus and degenerative disc disease with right lower extremity radiculopathy who failed outpatient conservative therapy. She admitted for a laminectomy and decompression with discectomy at L5-S1. The patient tolerated the procedure well and did well postoperatively. She states her right lower extremity radiculopathy symptoms have improved but she continues to have some tingling in the right lower extremity. She's been able to ambulate out of bed without significant difficulty states she has been somewhat slow. She feels she is ready for discharge home. Condition on day of discharge stable. Patient will be discharged home. Patient was cleared preoperatively for surgery by Dr. Bingham. Patient currently denies any nausea, vomiting, fever , or chills. Patient is eating and voiding freely without difficulty. Patient may shower Tegaderm dressing intact. Patient may remove Tegaderm dressing in 3 days and shower without a dressing at that time. Patient should keep Steri- Strips intact and allow them to fall off naturally. Patient should refrain from driving until at least after their first follow-up appointment in the office. Patient should avoid excessive bending, lifting, and twisting; no lifting greater than 10 pounds. Patient is given a refill prescription of discharge for [place] 10 mg/325 mg take 1 tablet every 6 hours as needed for pain, dispensed 90 (ninety). Physical Exam on day of discharge: Patient is awake, alert, and oriented 3 Vital signs stable Good chest excursion with deep inspiration and expiration Abdomen soft nontender No signs or symptoms of DVT; no calf pain Extensor hallucis longus, plantarflexion, and dorsiflexion positive sustained bilateral lower extremities Evidence of some dried blood of the lower part of the dressing without any active drainage Incision is dry and intact; no erythema, purulence, or signs of infection Tegaderm dressing and non-stick Telfa intact Procedures: L5-S1 laminectomy and decompression and discectomy Patient Condition at Discharge: Stable Plan - Discharge Summary New Discharge Prescriptions: HYDROcodone/APAP 10-325MG [[place] 10-325] 1 tab PO Q6H PRN #90 tab PRN Reason: Severe Pain Discharge Medication List Gabapentin [Neurontin] 100 mg PO BID 03/15/16 [History] PARoxetine HCL [Paxil] 20 mg PO HS 03/15/16 [History] Famotidine [Pepcid] 20 mg PO BID #60 tablet 03/17/16 [Rx] HYDROcodone/APAP 10-325MG [[place] 10-325] 1 tab PO Q6H PRN #30 tab 03/17/16 [Rx] Cyclobenzaprine [Flexeril] 10 mg PO HS 04/15/16 [History] HYDROcodone/APAP 10-325MG [[place] 10-325] 1 tab PO Q6H PRN #90 tab 04/20/16 [Rx] Follow up Appointment(s)/Referral(s): Sachin Case DO [Doctor of Osteopathic Medicine] - 05/02/16 11:00 am (With Helio Dumont at Dr. Case's office) Activity/Diet/Wound Care/Special Instructions: Keep site clean. May shower with waterproof Tegaderm intact. Do not soak in a tub. On Monday May remove dressing and then may shower with area uncovered but leave Steri-Strips intact and allow them to fray off on their own. May ambulate to tolerance. Avoid heavy or rigorous activity. No repetitive bending twisting or lifting. No lifting greater than 20 pounds. Discharge Disposition: HOME SELF-CARE
[2016-04-21] MEDS: SODIUM CHLORIDE 0.9% 1,000 ML IV SCH (09:55)
== END 2016-04-21 14:55 | disposition home or self-care (01) ==
LOC: OR 11:11 → 5MS5E 14:02 → OR 23:04
PROVIDERS: ADMIT Orthopaedic Surgery Orthopaedic Surgery of the Spine; ATTEND Orthopaedic Surgery Orthopaedic Surgery of the Spine
DX: M51.17 Intervertebral disc disorders with radiculopathy, lumbosacral region (principal); M51.36 Other intervertebral disc degeneration, lumbar region; Z88.2 Allergy status to sulfonamides; Z88.7 Allergy status to serum and vaccine; F32.9 Major depressive disorder, single episode, unspecified
CPT/HCPCS: 81025; 86900; 86901; 86850; 72020; 63047; G0378 ×2; J2250; J1040; J2710; J0690 ×2; J2405; J2001; J3010; J1885; J1170 ×2; J0330; J2704; 96374

== ENCOUNTER → 2016-05-31 | Outpatient (CLI) | payer OTHER ==
--- NOTE | 2016-05-31 15:36 | US ---
EXAMINATION TYPE: US transvaginal and pelvis limited DATE OF EXAM: 05/31/2016 3:26 PM COMPARISON: 01/13/2016 CLINICAL HISTORY: N83.202 Cyst on Left ovary. No pain, ablation 2015 TECHNIQUE: TV and TA limited Date of LMP: 2015 EXAM MEASUREMENTS:ovaries transabdominally only Uterus: 9.2 x 5.5 x 4.9 cm Endometrial Stripe: 0.8 cm Right Ovary: 3.7 x 1.9 x 2.7 cm Left Ovary: 2.0 x 1.5 x 1.3 cm 1. Uterus: Anteverted wnl 2. Endometrium: wnl 3. Right Ovary: There are 2 anechoic lesions within the right kidney both measuring approximately 2 cm. 4. Left Ovary: wnl 5. Bilateral Adnexa: wnl 6. Posterior cul-de-sac: wnl IMPRESSION: 1. There are 2 simple cysts within the right ovary. Both measure approximately 2 cm. 2. There is no evidence of left ovarian cysts.
== END | disposition home or self-care (01) ==
LOC: RADUSWWP 14:46
PROVIDERS: ATTEND Obstetrics & Gynecology
DX: N83.291 Other ovarian cyst, right side (principal); Z98.890 Other specified postprocedural states
CPT/HCPCS: 76830; 76857

== ENCOUNTER → 2018-02-13 | Outpatient (CLI) | payer OTHER ==
--- NOTE | 2018-02-13 14:26 | US ---
EXAMINATION TYPE: US transvaginal DATE OF EXAM: 02/13/2018 COMPARISON: US 2017 CLINICAL HISTORY: R10.2 PELVIC AND PERINEAL PAIN. Intermittent right pelvic pain, history of uterine ablation, history of tubal ligation TECHNIQUE: Transvaginal exam only per ordering physician. Date of LMP: 3+ years ago EXAM MEASUREMENTS: Uterus: 9.1 x 4.9 x 5.5 cm Endometrial Stripe: 0.4 cm Right Ovary: not seen Left Ovary: not seen 1. Uterus: anteverted, heterogeneous, multiple nabothian cysts 2. Endometrium: wnl 3. Right Ovary: not seen due to overlying bowel gas 4. Left Ovary: not seen due to overlying bowel gas 5. Bilateral Adnexa: wnl 6. Posterior cul-de-sac: small amount of free fluid Heterogeneous anteverted uterus is seen with nabothian cysts in the cervix. Tiny amount of free fluid in pelvic cul-de-sac is noted. Neither ovary is clearly identified on images saved today. IMPRESSION: Tiny amount of free fluid in pelvic cul-de-sac is noted.
== END | disposition home or self-care (01) ==
LOC: RADUSWWP 13:30
PROVIDERS: ATTEND Obstetrics & Gynecology
DX: R10.2 Pelvic and perineal pain (principal)
CPT/HCPCS: 76830

== ENCOUNTER → 2018-03-15 | Outpatient (CLI) | payer OTHER ==
--- NOTE | 2018-03-15 10:08 | CT ---
EXAMINATION TYPE: CT abdomen pelvis w con DATE OF EXAM: 03/15/2018 COMPARISON: 03/31/2016 HISTORY: 47-year-old female RLQ pain TECHNIQUE: Contiguous axial scanning of the abdomen and pelvis following administration of 100 ml Iso khris 300 IV contrast. Delayed images through the kidneys and coronal/sagittal reconstructions perform ed. CT DLP: 1799 mGycm Automated exposure control for dose reduction was used. FINDINGS: Heart normal size without pericardial effusion. Lung bases clear without pleural effusion. Liver is borderline in size 17.5 cm. No focal lesion seen. No biliary ductal dilatation. Portal venou s system is patent. Gallbladder, adrenal glands, kidneys, spleen with hilar splenule, pancreas appear within normal limit s. No dilated small bowel, free fluid, or free air. No mesenteric or retroperitoneal lymphadenopathy. Normal appendix. Oral contrast has progressed to the proximal sigmoid. No pericolonic inflammatory ch issa. Tiny fatty umbilical hernia. Bladder nondistended. Uterus and ovaries are visualized. There is a 2.4 cm cystic lesion within the r ight ovary and 2.4 cm cystic lesion left ovary. Multiple pelvic phleboliths. No abnormal fluid collec tion in the pelvis or pelvic lymphadenopathy. There is new distention of the lower right gonadal vein of uncertain clinical significance, for examp le, refer to coronal image 65. Bones: Degenerative changes left SI joint mild facet degenerative changes in the lumbar spine. No oss eous destructive process. Degenerative disc disease L5-S1. IMPRESSION: 1. ENGORGEMENT OF THE RIGHT GONADAL VEIN OF UNCERTAIN ETIOLOGY AND CLINICAL SIGNIFICANCE. THIS COULD REPRESENT UNDERLYING VARIX OR PELVIC CONGESTION SYNDROME. UNDERLYING THROMBUS IN THE RIGHT GONADAL VE IN COULD ALSO BE A POSSIBILITY. 2. A 2.4 CM CYSTIC LESION IN EACH OVARY, LIKELY DOMINANT FOLLICLES OR FUNCTIONAL CYSTS. 3. NORMAL APPENDIX. NO OTHER ACUTE INFLAMMATORY PROCESS IDENTIFIED IN THE ABDOMEN OR PELVIS TO EXPLAI N THE PATIENT'S SYMPTOMS.
== END | disposition home or self-care (01) ==
LOC: RADCTMAIN 06:52
PROVIDERS: ATTEND Family Medicine
DX: I87.8 Other specified disorders of veins (principal); N83.201 Unspecified ovarian cyst, right side; N83.202 Unspecified ovarian cyst, left side
CPT/HCPCS: 74177; Q9967

== ENCOUNTER → 2018-03-28 | Outpatient (CLI) | payer OTHER ==
--- NOTE | 2018-03-28 16:00 | CT ---
EXAMINATION TYPE: CT abdomen pelvis w con DATE OF EXAM: 03/28/2018 COMPARISON: 03/15/2018 HISTORY: 47-year-old female further assessment of Enlarged right gonadal vein TECHNIQUE: Contiguous axial scanning of the abdomen and pelvis following administration of 100 ml Iso khris 300 IV contrast. Postcontrast series was obtained after 80 seconds and three-minute delays. Coron al and sagittal reconstructions performed. CT DLP: 4532 mGycm Automated exposure control for dose reduction was used. FINDINGS: Heart normal size without pericardial effusion. Lung bases clear without pleural effusion. Calcified granuloma at the left base. Liver borderline to mildly enlarged measuring 18.5 cm. No focal liver lesion or biliary ductal dilata tion. Portal venous system is patent. Gallbladder, adrenal glands, kidneys, spleen with hilar splenule, and pancreas appear within normal l imits. No dilated small bowel, free fluid, or free air. No mesenteric or retroperitoneal lymphadenopathy. Ti ny fatty umbilical hernia. Normal appendix. Mild overall stool burden. No pericolonic inflammatory change. Uterus and both ovaries are visualized. There is a 2.2 cm dominant follicle or functional cyst in the left ovary and a 2.1 cm dominant follicle or functional cyst in the right ovary. The right gonadal vein is currently less tortuous in course as compared to prior exam and shows impro doni caliber without any suspicious filling defect. Faint uniform enhancement is demonstrated, symmetr ic to the contralateral side. Multiple pelvic phlebolith. No abnormal fluid collection in the pelvis or pelvic lymphadenopathy. Roger dder is nondistended. Bones: Mild degenerative changes at the hips and degenerative bony ankylosis at the left SI joint. De generative disc disease L5-S1. Facet arthropathy lower lumbar spine. IMPRESSION: 1. IMPROVED APPEARANCE OF THE RIGHT GONADAL VEIN IN THE INTERVAL. THE VESSEL IS LESS TORTUOUS AND NOW WITH NORMAL CALIBER. NO EVIDENCE FOR OVARIAN VEIN THROMBOSIS. FINDINGS ON PRIOR EXAM MAY HAVE REPRES ENTED PHYSIOLOGIC ENGORGEMENT. 2. FOLLICULAR CHANGE IN BOTH OVARIES.
== END ==
LOC: RADCTMAIN 14:07
PROVIDERS: ATTEND Family Medicine
DX: R93.5 Abnormal findings on diagnostic imaging of other abdominal regions, including retroperitoneum (principal)
CPT/HCPCS: 74177; Q9967

== ENCOUNTER → 2019-02-07 | Outpatient (CLI) | payer SELFPAY ==
--- NOTE | 2019-02-07 12:41 | XR ---
EXAM TYPE: LUMBAR SPINE X RAY SERIES COMPARISON: NONE HISTORY: Pain TECHNIQUE: 4 views are submitted. FINDINGS: Alignment is anatomic. The pedicles are intact. The transverse processes are intact. There is no s pondylolysis or spondylolisthesis. Multilevel facet arthropathy noted. Slight anterolisthesis L4 and L5. Degenerative disc disease L5-S1. IMPRESSION: 1. Degenerative disc disease lower lumbar spine with severe facet arthropathy involving the lower lum bar spine. Recommend follow-up MRI..
--- NOTE | 2019-02-07 12:43 | XR ---
EXAMINATION TYPE: XR sacrum coccyx DATE OF EXAM: 02/07/2019 COMPARISON: NONE HISTORY: Pain Three views are submitted. Sacrum is intact. SI joints are symmetric. Coccyx appears to be intact. Visualized pelvic structures intact. Calcifications in the pelvis likely vascular. Chronic appeari ng deformity of the sacrococcygeal junction. Facet arthropathy and degenerative change lower lumbar s pine. IMPRESSION: 1. No acute fracture. 2. Facet arthropathy degenerative change lower lumbar spine.
== END | disposition home or self-care (01) ==
LOC: RADXRMAIN 10:52
PROVIDERS: ATTEND Family Medicine
DX: M51.36 Other intervertebral disc degeneration, lumbar region (principal); M46.96 Unspecified inflammatory spondylopathy, lumbar region; M53.3 Sacrococcygeal disorders, not elsewhere classified; Z91.81 History of falling
CPT/HCPCS: 72110; 72220

== ENCOUNTER → 2019-02-19 | Outpatient (CLI) | payer SELFPAY ==
--- NOTE | 2019-02-19 11:21 | XR ---
EXAMINATION TYPE: XR Hip Complete RT DATE OF EXAM: 02/19/2019 CLINICAL HISTORY: Fall injury 12 days ago with pain. TECHNIQUE: AP and frogleg views of the right hip are obtained. COMPARISON: CT abdomen and pelvis March 28, 2018 FINDINGS: There is no acute fracture/dislocation evident in the right hip. Mild axial joint space lo ss redemonstrated. Small spur near region of inferior greater trochanter again seen. Right-sided pelv ic phleboliths redemonstrated. IMPRESSION: There is no acute fracture or dislocation in the right hip.
== END | disposition home or self-care (01) ==
LOC: RADXRMAIN 10:06
PROVIDERS: ATTEND Family Medicine
DX: M25.551 Pain in right hip (principal); R20.2 Paresthesia of skin
CPT/HCPCS: 73502

== ENCOUNTER → 2019-09-27 | Outpatient (CLI) | payer OTHER ==
--- NOTE | 2019-09-27 08:40 | MR ---
EXAMINATION TYPE: MR lumbar spine wo/w con DATE OF EXAM: 09/27/2019 COMPARISON: Plain film 02/07/2019 HISTORY: Slip and fall in February, Lower back pain on the right side into right leg. TECHNIQUE: Multiplanar, multisequence images of the lumbar spine were acquired utilizing 13.5 mL intravenous Balta avist gadolinium contrast. L1-L2: Normal disc appearance without desiccation. No herniation, protrusion or disc bulging. No ca nal stenosis is present. Foramina are patent bilaterally. L2-L3: Normal disc appearance without desiccation. No herniation, protrusion or disc bulging. No ca nal stenosis is present. Foramina are patent bilaterally. L3-L4: Normal disc appearance without desiccation. No herniation, protrusion or disc bulging. No ca nal stenosis is present. Foramina are patent bilaterally. There is some facet arthropathy change cau sing some minimal posterior lateral mass effect on the thecal sac due to hypertrophy ligamentum flavu m. L4-L5: No disc herniation. There is facet arthropathy with hypertrophy ligamentum flavum causing some posterior lateral mass effect on the thecal sac. No significant spinal stenosis or foraminal encroac hment. L5-S1: There is a right posterior paracentral disc herniation present causing anterolateral mass effe ct on the thecal sac, aspect of the right S1 nerve root. No definite foraminal encroachment. Lumbar segments are intact. No paraspinal masses are identified. Conus medullaris has a normal appe arance. Lumbar vertebral bodies show preserved height and alignment. There is increased signal within the L2 vertebral body somewhat diffusely but also more focally within the L1 vertebral body likely d ue to hemangiomas, endplate discogenic marrow signal changes present especially at L5-S1, there is as sociated loss of disc height is normal at L5-S1, L4-5. Possible circumaortic left renal vein. There i s some peripheral contrast enhancement of the disc herniation. IMPRESSION: Right posterior paracentral disc herniation as described at L5-S1. Degenerative disc disease and face t arthropathy, additional findings above
== END | disposition home or self-care (01) ==
LOC: RADMRIMAIN 07:24
PROVIDERS: ATTEND Orthopaedic Surgery Orthopaedic Surgery of the Spine
DX: M51.36 Other intervertebral disc degeneration, lumbar region (principal); M47.26 Other spondylosis with radiculopathy, lumbar region
CPT/HCPCS: 72158; A9585

== ENCOUNTER → 2021-10-23 | Outpatient (CLI) | payer OTHER ==
[2021-10-23 16:39] LABS: ALT 23 U/L (8-44); AST 23 U/L (13-35); African American GFR (CKD) 86.8 (60.0-200.0); Albumin 4.2 g/dL (3.8-4.9); Albumin/Globulin Ratio 1.53 (1.60-3.17); Alkaline Phosphatase 92 U/L (41-126); BUN/Creat Ratio 18.84 Ratio (12.00-20.00); Blood Urea Nitrogen 16.9 mg/dL (9.0-27.0); Calcium 9.1 mg/dL (8.7-10.3); Carbon Dioxide 23.5 mmol/L (20.0-27.5); Chloride 105 mmol/L (96-109); Globulin 2.7 g/dL (1.6-3.3); Glucose 109 mg/dL (70-110); LDL Cholesterol,Calculated 103.7 mg/dL (0.0-131.0); Non-African American GFR(CKD) 74.9 (60.0-200.0); Potassium 4.1 mmol/L (3.5-5.5); Sodium 141 mmol/L (135-145); Total Protein 6.9 g/dL (6.2-8.2)
== END | disposition home or self-care (01) ==
LOC: LABWHC1 10:07
PROVIDERS: ATTEND Family Medicine
DX: E78.2 Mixed hyperlipidemia (principal); R73.01 Impaired fasting glucose
CPT/HCPCS: 36415; 80053; 80061; 83036